=== PATIENT | male | born 1945 | race Caucasian/White ===

== ENCOUNTER 2017-03-09 02:10 | Inpatient (IN) | payer MEDICARE, OTHER ==
--- NOTE | ~2017-03-09 | HP ---
History And Physical [place] [id number] [facility] [place]. [address] NAME: LAURA BILLS : 47 STATUS : ADM Siddhartha PAT#: [id number] AGE: 71 ADM/REG DATE : 03/09/17 MR#: [id number] REPORT SERV DATE: 03/09/17 DICTATED BY: MIC ALEX DATE: 03/09/17 REPORT STATUS : Draft TRANSCRIBED BY: MODTong DATE: 03/09/17 DATE OF ADMISSION: 03/09/2017 CHIEF COMPLAINT: Kidney stone. This is a 71-year-old white gentleman who presents with acute onset of right colicky flank pain, severe in nature, to [facility] Emergency Room. Conservative measures to get the patient comfortable were unsuccessful. CT scan revealed about a 5 mm stone at around the L5 level on the right. I have reviewed these films with Dr. Arturo Zimmer in x-ray. There also was noted to be considerable hydronephrosis proximal to the obstructing stone. The left kidney is not obstructed but does show some evidence of chronic scarring. The patient is admitted for a right ureteroscopy with attempts to laser the stone and place a stent to relieve obstruction. I have explained the procedure and risks to the patient which include, but are not limited to bleeding, infection, perforation of the ureter, inability to access the stone, requiring stent placement or nephrostomy tube placement which I explained to him as a tube placed into the kidney through the back in the x-ray department. I did explain that in the event that I am not able to access the stone and the stent can be left, then his attending urologist Dr. Laura Rivera will likely return him to endoscopy in 1 to 2 weeks for a repeat procedure. He understands and agrees. My conference with him was witnessed by Dr. Dean Reynoso from the Anesthesia group. REVIEW OF SYSTEMS: ALLERGIES: NO ALLERGIES. 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 He also has a history of cholecystectomy in 2014. MEDICAL HISTORY: Positive for hypertension, gout, arthritis, and irritable bowel syndrome. SOCIAL HISTORY: Noncontributory. FAMILY HISTORY: Noncontributory. PHYSICAL EXAMINATION: GENERAL: A well developed, well nourished, 71-year-old white gentleman. Alert and oriented x3. No apparent distress. HEAD AND NECK: Normal. CHEST: Clear. CARDIOVASCULAR EXAM: Regular rate and rhythm. ABDOMEN: Soft, slightly distended. BACK: Examination of the back reveals right CVA tenderness to blunt percussion. Left is normal. : Genitalia normal. Uncircumcised penis. Scrotum, testes, and perineum normal. Rectal exam not done. History And Physical [address] [address] NAME: LAURA BILLS : 47 STATUS : ADM Siddhartha PAT#: [id number] AGE: 71 ADM/REG DATE : 03/09/17 MR#: [id number] REPORT SERV DATE: 03/09/17 DICTATED BY: MIC ALEX DATE: 03/09/17 REPORT STATUS : Draft TRANSCRIBED BY: RADHA DATE: 03/09/17 EXTREMITIES: Unremarkable. NEUROLOGIC: Grossly intact. IMPRESSION: Right ureteral stone. PLAN: As above. The patient is encouraged to ask pertinent questions which were answered appropriately. /RADHA Mic Alex M.D. / [id number] CC: Mic Alex M.D.
--- NOTE | ~2017-03-09 | CN ---
Consultation Report [facility] [address] [place]. [address] NAME: LAURA BILLS : 47 STATUS : ADM Siddhartha PAT#: [id number] AGE: 71 ADM/REG DATE : 03/09/17 MR#: [id number] REPORT SERV DATE: 03/09/17 DICTATED BY: ADAM MATUTE DATE: 03/09/17 REPORT STATUS : Draft TRANSCRIBED BY: MODL DATE: 03/09/17 CONSULTATION DATE OF CONSULTATION: 03/09/2017 REASON FOR CONSULTATION: High blood pressure and nausea. HISTORY OF PRESENT ILLNESS: This is a 71-year-old gentleman who was admitted to the hospital through the ER today after he was found to have an obstructive nephrolithiasis. The patient reports that he developed severe pain in his right flank pain that radiated down to his groin overnight and he also developed a lot of nausea. The patient came to the ER and subsequently had a CT scan done which showed a 4 mm nephrolithiasis with proximal hydronephrosis and ureter on the right side. The patient was admitted for ureteroscopy per Dr. Gonzalez. The patient is admitted after the ureteroscopy for observation overnight. Postop, the patient developed quite severe nausea and his blood pressure went up to 180s over 100s. Internal Medicine consultation was thus requested to help and manage medically postop. REVIEW OF SYSTEMS: The patient denies any fevers or chills. Also, 14-point review of systems reviewed and negative other than mentioned above. MEDICATIONS: At home: 1. Zyloprim 100 mg p.o. b.i.d. 2. Cardura 8 mg p.o. daily. 3. Vasotec 5 mg p.o. daily. 4. Lopid 600 mg p.o. b.i.d. 5. Fish oil 1200 mg p.o. daily. 6. Prilosec 40 mg p.o. daily. 7. Lamisil 250 mg p.o. daily. 8. Zanaflex 4 mg p.o. three times daily p.r.n. ALLERGIES: CODEINE. PAST MEDICAL HISTORY: 1. Hypertension. 2. Gout. 3. IBS. 4. Arthritis. 5. Squamous cell cancer of the tongue back in 2011, status post chemo and radiation therapy, the patient is currently considered cancer free. 6. Melanoma, back in 1985. PAST SURGICAL HISTORY: Consultation Report [facility] [address] [place]. [address] NAME: LAURA BILLS : 47 STATUS : ADM Siddhartha PAT#: [id number] AGE: 71 ADM/REG DATE : 03/09/17 MR#: [id number] REPORT SERV DATE: 03/09/17 DICTATED BY: ADAM MATUTE DATE: 03/09/17 REPORT STATUS : Draft TRANSCRIBED BY: MODTong DATE: 03/09/17 1. Squamous cell cancer of the tongue back in 2011. 2. Cholecystectomy. FAMILY HISTORY: 1. CVA. 2. MIs. 3. Multiple family members with cancers. SOCIAL HISTORY: The patient does not smoke, but he does consume a fair amount of alcohol. The patient reports that he takes a few shots of Dandy Lucio's two to three times weekly. PHYSICAL EXAMINATION: VITAL SIGNS: Temperature 97.2; blood pressure 143/74 on admission, but it went up to 180s over 100s postop; pulse 80; respiratory rate is 19; saturating 100% on room air. GENERAL: The patient is alert and oriented x3 with no focal neurologic deficits. The patient is awake, in mild acute distress due to nausea, but otherwise he is cooperative. NECK: No JVD. No lymphadenopathy. Normal thyroid. CHEST: No midline sternotomy scar and no tenderness to palpation. LUNGS: Clear to auscultation bilaterally with normal respiratory effort on room air. CARDIOVASCULAR: Regular rate and rhythm with no murmurs, rubs, or gallops, and PMI is nondisplaced. ABDOMEN: Soft, nontender, with active bowel sounds and no organomegaly. EXTREMITIES: No edema. Normal distal pulses. No calf tenderness. SKIN: Clean, dry, warm, and intact. LABORATORY DATA: Sodium is 137, potassium 4.4, chloride 102, BUN 17, creatinine 1.57, glucose 131, calcium 9.9. White blood cell count is 7.5, hemoglobin 14.1, platelets 179. INR is 1.1. ASSESSMENT: This is a 71-year-old gentleman who was admitted to the hospital with nephrolithiasis, status post ureteroscopy and stent placement, now has nausea and elevated blood pressures. 1. 4 mm obstructing nephrolithiasis on the right, status post ureteroscope and stent placement per Dr. Gonzalez. 2. Postop nausea. 3. Postop elevated blood pressures. 4. Irritable bowel syndrome. 5. Gout. 6. Renal insufficiency with creatinine of 1.57. 7. Bentley amount of alcohol consumption. PLAN: My plan is to mainly focus on supportive care with antiemetics and IV fluids. The above has been already started by the primary team, which I agree with, and I will increase the doses of antiemetics to provide better relief. The patient will also be treated with antihypertensives as needed for elevated blood pressure. However, given his blood pressures Consultation Report [facility] [address] [facility] [place]. [address] NAME: LAURA BILLS : 47 STATUS : ADM Siddhartha PAT#: [id number] AGE: 71 ADM/REG DATE : 03/09/17 MR#: [id number] REPORT SERV DATE: 03/09/17 DICTATED BY: ADAM MATUTE DATE: 03/09/17 REPORT STATUS : Draft TRANSCRIBED BY: MODL DATE: 03/09/17 that are fairly normal on admission and reportedly at home, I am not fond of starting him on a new antihypertensive regimen. Of note, the patient takes losartan at home only occasionally, and the patient keeps track of his blood pressure on daily basis at home. For the liberal amount of alcohol consumption, I strongly suggested abstinence especially given his history of hypertension as well as gouty arthritis, and for renal insufficiency, we will monitor in's and out's and monitor renal function on daily basis. Thank you very much for consulting us. We will continue to follow the patient with you. SOFÍA/RADHA Adam Matute MD / [id number] CC: Mic Gonzalez M.D.
--- NOTE | ~2017-03-09 | OP ---
Record Of Operation [facility] [address] [place]. [address] NAME: LAURA BILLS : 47 STATUS : ADM Siddhartha PAT#: [id number] AGE: 71 ADM/REG DATE : 03/09/17 MR#: [id number] REPORT SERV DATE: 03/09/17 DICTATED BY: MIC ALEX DATE: 03/09/17 REPORT STATUS : Draft TRANSCRIBED BY: MODL DATE: 03/09/17 DATE OF PROCEDURE: 03/09/2017 PREOPERATIVE DIAGNOSIS: Calculus right ureter with obstruction. POSTOPERATIVE DIAGNOSIS: Calculus right ureter with obstruction. OPERATIVE PROCEDURE: 1. Right flexible ureteroscopy with holmium laser lithotripsy stone. 2. Placement of right ureteral stent. 3. Right retrograde pyelogram. ANESTHESIA: General inhalation endotracheal. COMPLICATIONS: None. DRAINS: 1. #6-Bhutanese 26 cm Microvasive Percuflex stent without removal suture. 2. #18 Coude Salazar catheter. IMMEDIATE POSTOP: Satisfactory. DESCRIPTION OF PROCEDURE: The patient was brought to the cysto suite, given general inhalational anesthetic, placed in the lithotomy position. Perineum and genitalia were prepped and draped in a sterile fashion. Video cystourethroscopy was then performed using a #22 cystoscope and Foroblique lens. Distal urethra was normal. 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 Right ureteral orifice was easily identified. It was mildly patulous. A #8 cone-tipped ureteral catheter was then inserted into the orifice and left retrograde pyelogram was performed which revealed filling of an essentially unremarkable ureter. There was a little dilation of the ureter at the top of the SI joint on the right. The right renal pelvis did show dilation. At this point, a 0.35 Sensor wire was passed through the cystoscope into the orifice and up into the pyelocalyceal system while observing on an on-table fluoroscopy. This was followed by placing a removal of the cystoscope and placing a #10 dual-lumen ureteral catheter over the wire and then placing a second wire through the accessory port, that being a 0.35 Glidewire. Following this, the inner sheath of an 11, 13, 28 cm access Navigator sheath was passed over the Glidewire which was used as a "(working wire)". The original Sensor wire placed aside and secured as a "safety" wire. This obturator easily passed. The obturator was then placed in the working sheath which was passed over the working wire and easily passed as well up to the limit of about the top of the SI joint. The Glidewire was removed leaving the safety wire in place. Contrast was injected through the obturator sheath which was still within the working sheath of the ureteral access sheath, and there was no extravasation of contrast. The obturator was removed leaving the working sheath in place. At this point, a flexible ureteroscope was passed through the scope to the distal end of the access sheath. At that point, an approximately 5 mm ureteral stone was identified. A 200 micron Holmium laser fiber was then passed through the sheath, and the stone was fragmented Record Of Operation [address] [address] NAME: LAURA BILLS : 47 STATUS : ADM Siddhartha PAT#: [id number] AGE: 71 ADM/REG DATE : 03/09/17 MR#: [id number] REPORT SERV DATE: 03/09/17 DICTATED BY: MIC ALEX DATE: 03/09/17 REPORT STATUS : Draft TRANSCRIBED BY: RADHA DATE: 03/09/17 into multiple small pieces. It was felt that these pieces were small enough to be able to be spontaneously passed. At this point, leaving the working wire in place, the access sheath was removed. At this point, the cystoscope was passed over the working wire, and a 6 Bhutanese 26 cm Microvasive Percuflex stent without removal of suture was passed over the wire and pushed up into the pyelocalyceal system. The wire was removed. The stent assumed normal configuration, both proximally and distally. This was confirmed by review with Radiology (Dr. Zimmer). At this point, #18 Salazar catheter Coude type was passed in to the bladder, balloon inflated, hooked to drainage. The patient was awakened and sent to recovery in satisfactory condition. /RADHA Mic Alex M.D. / [id number] CC: Mic Alex M.D.
[2017-03-09 01:47] LABS: ASCORBIC ACID (UR NOT ORDER) NEG (NEG); BILIRUBIN, URINE NEGATIVE (NEG); ER URINALYSIS TAT 0 Hrs 00 Mins; KETONE, URINE NEGATIVE (NEG); LEUKOCYTE ESTERASE(NOT OR NEG (NEG); NITRITE (URINE) NEG (NEG); WBC (NOT ORDERED) (RFLEX) 1 (0-5)
[2017-03-09 01:47] LABS: BASOPHILS 0.3 %; BASOPHILS ABSOLUTE 0.02 10/3/uL (0.0-0.16); EOSINOPHILS 1.3 %; HEMOGLOBIN 14.1 g/dL (13.6-17.8); IMMATURE GRANULOCYTES 0.3 %; IMMATURE GRANULOCYTES ABSOLUTE 0.02 10/3/uL (0.0-0.11); LYMPHOCYTES 13.6 %; LYMPHOCYTES ABSOLUTE 1.02 10/3/uL (0.67-4.30); MEAN CORPUS HGB CONC 34.7 g/dL (32.0-36.0); MEAN CORPUSCULAR HEMOGLOB 32.3 pg (26.0-34.0); MEAN CORPUSCULAR VOLUME 93.1 fL (80-100); MEAN PLATELET VOLUME 9.6 fL (9.2-13.0); MONOCYTES ABSOLUTE 0.52 10/3/uL (0.21-1.20); NEUTROPHILS 77.5 %; PLATELET COUNT 179 10/3/uL (150-400); RED CELL COUNT 4.36 10/6/uL (4.7-6.1)
[2017-03-09 01:49] LABS: HEMATOCRIT 40.6 % (40.0-51.0); MANUAL DIFF NO %; WHITE BLOOD CELLS 7.5 10/3/uL (4.5-10.5)
[2017-03-09 01:55] LABS: INTERNATIONAL NORMAL RATI 1.1 UNITS (-); PARTIAL THROMBO TIME 29.1 SEC (22.5-37.2); PROTIME (NOT ORD) 13.9 SEC (12.0-14.5)
[2017-03-09 02:04] LABS: A/G RATIO 1.3 (0.7-1.9); ALBUMIN 4.3 G/DL (3.5-5.0); ALKALINE PHOSPHATASE 54 U/L (45-117); BUN (BLOOD UREA NITROGEN) 17 MG/DL (6-23); CALCIUM, SERUM 9.9 MG/DL (8.5-10.4); CHLORIDE, SERUM 102 MMOL/L (96-112); CO2 (CARBON DIOXIDE) 28 MMOL/L (24-34); CREATININE 1.57 MG/DL (0.70-1.30); GFR AFRICAN AMERICAN 51 ML/MIN (>=60); GFR NON AFRICAN AMERICAN 44 ML/MIN (>=60); GLOBULIN 3.3 G/DL (2.5-4.1); GLUCOSE, SERUM 131 MG/DL (60-99); POTASSIUM, SERUM 4.4 MMOL/L (3.5-5.3); SGOT(AST) 28 U/L (5-40); SGPT(ALT) 39 U/L (5-65); SODIUM, SERUM 137 MMOL/L (135-148); TOTAL BILIRUBIN 0.4 MG/DL (0-1.2); TOTAL PROTEIN 7.6 G/DL (6.0-8.5)
[2017-03-09] MEDS ORDERED: CARDURA8 MG PO (04:38)
[2017-03-09] MEDS ORDERED: PRILOSEC40 MG PO (04:41)
[2017-03-09] MEDS ORDERED: FISH OIL1200 MG (04:42)
[2017-03-09] MEDS ORDERED: Z100 PO (04:42)
[2017-03-09] MEDS ORDERED: LOPID6 PO (04:42)
[2017-03-09] MEDS ORDERED: ZANAFLEX 4 MG TA4 MG PO (04:43)
[2017-03-09] MEDS ORDERED: VASOTEC5 PO (04:43)
[2017-03-09] MEDS ORDERED: LAM250 PO (04:43)
[2017-03-10 06:03] LABS: BASOPHILS 0 %; EOSINOPHILS 0.8 %; EOSINOPHILS ABSOLUTE 0.08 10/3/uL (0.0-0.53); HEMATOCRIT 42.6 % (40.0-51.0); HEMOGLOBIN 14.5 g/dL (13.6-17.8); IMMATURE GRANULOCYTES 0.1 %; IMMATURE GRANULOCYTES ABSOLUTE 0.01 10/3/uL (0.0-0.11); LYMPHOCYTES 9.9 %; LYMPHOCYTES ABSOLUTE 0.99 10/3/uL (0.67-4.30); MEAN CORPUSCULAR HEMOGLOB 32.5 pg (26.0-34.0); MEAN CORPUSCULAR VOLUME 95.5 fL (80-100); MEAN PLATELET VOLUME 9.6 fL (9.2-13.0); MONOCYTES 10.4 %; MONOCYTES ABSOLUTE 1.03 10/3/uL (0.21-1.20); NEUTROPHILS 78.8 %; NEUTROPHILS ABSOLUTE 7.84 10/3/uL (2.02-8.40); PLATELET COUNT 176 10/3/uL (150-400); RBC DISTRIBUTION WIDTH 13.3 % (12.0-16.0); RED CELL COUNT 4.46 10/6/uL (4.7-6.1)
[2017-03-10 06:04] LABS: MANUAL DIFF NO %
[2017-03-10 06:17] LABS: BUN (BLOOD UREA NITROGEN) 13 MG/DL (6-23); CALCIUM, SERUM 9.3 MG/DL (8.5-10.4); CHLORIDE, SERUM 101 MMOL/L (96-112); CO2 (CARBON DIOXIDE) 27 MMOL/L (24-34); CREATININE 1.31 MG/DL (0.70-1.30); GFR AFRICAN AMERICAN 64 ML/MIN (>=60); GFR NON AFRICAN AMERICAN 55 ML/MIN (>=60); GLUCOSE, SERUM 123 MG/DL (60-99); SODIUM, SERUM 136 MMOL/L (135-148)
[2017-03-11 05:54] LABS: BASOPHILS 0.1 %; BASOPHILS ABSOLUTE 0.01 10/3/uL (0.0-0.16); EOSINOPHILS 1.7 %; EOSINOPHILS ABSOLUTE 0.14 10/3/uL (0.0-0.53); HEMOGLOBIN 13.3 g/dL (13.6-17.8); IMMATURE GRANULOCYTES 0.2 %; IMMATURE GRANULOCYTES ABSOLUTE 0.02 10/3/uL (0.0-0.11); LYMPHOCYTES 12.4 %; LYMPHOCYTES ABSOLUTE 1.05 10/3/uL (0.67-4.30); MEAN CORPUS HGB CONC 34.1 g/dL (32.0-36.0); MEAN CORPUSCULAR VOLUME 96.8 fL (80-100); MEAN PLATELET VOLUME 9.5 fL (9.2-13.0); MONOCYTES 12.2 %; MONOCYTES ABSOLUTE 1.03 10/3/uL (0.21-1.20); NEUTROPHILS 73.4 %; NEUTROPHILS ABSOLUTE 6.21 10/3/uL (2.02-8.40); PLATELET COUNT 182 10/3/uL (150-400); RBC DISTRIBUTION WIDTH 13.4 % (12.0-16.0); RED CELL COUNT 4.03 10/6/uL (4.7-6.1); WHITE BLOOD CELLS 8.5 10/3/uL (4.5-10.5)
[2017-03-11 06:06] LABS: CALCIUM, SERUM 9.4 MG/DL (8.5-10.4); CHLORIDE, SERUM 102 MMOL/L (96-112); CO2 (CARBON DIOXIDE) 26 MMOL/L (24-34); CREATININE 1.62 MG/DL (0.70-1.30); GFR AFRICAN AMERICAN 49 ML/MIN (>=60); GFR NON AFRICAN AMERICAN 43 ML/MIN (>=60); GLUCOSE, SERUM 117 MG/DL (60-99); MANUAL DIFF NO %; POTASSIUM, SERUM 4.3 MMOL/L (3.5-5.3); SODIUM, SERUM 136 MMOL/L (135-148)
[2017-03-11 06:07] LABS: BUN (BLOOD UREA NITROGEN) 17 MG/DL (6-23)
[2017-03-11] MEDS ORDERED: NORCO1 TA1 PO (15:18)
[2017-03-11] MEDS ORDERED: DSS PO (15:19)
[2017-03-11] MEDS ORDERED: PYR100B (15:19)
[2017-03-11] MEDS ORDERED: PROSCAR5 PO (15:20)
== END 2017-03-11 17:05 | disposition home or self-care (01) | DRG 694 ==
LOC: ER 02:10 → 2SO 06:28 → SDC/OF 11:30 → 4SO 12:29
PROVIDERS: Internal Medicine; Nurse Practitioner; Urology
PROC: 0T768DZ Dilation of Right Ureter with Intraluminal Device, Via Natural or Artificial Opening Endoscopic (ICD-10-PCS; 2017-03-09)
PROC: BT1D1ZZ Fluoroscopy of Right Kidney, Ureter and Bladder using Low Osmolar Contrast (ICD-10-PCS; 2017-03-09)
PROC: 0TF68ZZ Fragmentation in Right Ureter, Via Natural or Artificial Opening Endoscopic (ICD-10-PCS; principal; 2017-03-09 09:15)
DX: N13.2 Hydronephrosis with renal and ureteral calculous obstruction (principal); M10.9 Gout, unspecified; K58.9 Irritable bowel syndrome, unspecified; N28.9 Disorder of kidney and ureter, unspecified; F10.10 Alcohol abuse, uncomplicated
CPT/HCPCS: 74000; 74176; 74420; 80048; 80053; 81001; 85025; 85610; 85730; 93005; 96374; 96375; 96376; 99285; A9270-GY; C1758; C1769; C2617; C9113; J0360; J1170; J1956; J2250; J2270; J2405; J2550; J2710; J3010; Q9967